=== PATIENT | female | born 1995 | race Caucasian/White ===

== ENCOUNTER 2022-03-14 11:01 | Emergency (ER) | payer MEDICAID, SELFPAY ==
[2022-03-14 11:02] VITALS: BP 104/81; PULSE 57; RESP 14; TEMP 36.8; O2SAT 97; BMI 15.9
--- NOTE | 2022-03-14 11:39 | EDS_ITS ---
HPI History of Present Illness Chief Complaint: Dental Informant: patient Narrative Narrative: 26-year-old female states that yesterday a filling broke on her right upper posterior tooth. Since then she has developed swelling on the right side of her face and increased pain. She had no relief with [id number]. She came from work. She denies any trismus. She states that she does not currently have a dentist [facility] Home Medications albuterol sulfate 90 mcg/actuation aerosol inhaler gm INHALATION 01/24/22 [History Last Taken Unknown] amoxicillin-pot clavulanate 875 mg PO Q12H #20 tablet 03/14/22 [Rx Last Taken Unknown] hydrocodone-acetaminophen 1 tab PO Q6H PRN PRN 3 Days #12 tablet 03/14/22 [Rx Last Taken Unknown] Allergy/AdvReac Type Severity Reaction Status Date / Time cephalexin AdvReac Unknown Unknown Verified 03/14/22 11:02 naproxen AdvReac Unknown Unknown Verified 03/14/22 11:02 Social History (Updated 03/14/22 @ 11:[address] Ang Tran, ) current gender identity: female Smoking Status: Never smoker ROS ROS ED Constitutional Constitutional ED: Denies chills, fever(s) or weight loss Eyes Eyes: Denies change in vision or diplopia ENT ENT ED: Reports other Details: Dental pain ; Denies ear pain, rhinorrhea or sore throat Cardiovascular Cardiovascular: Denies chest pain, orthopnea, palpitations or racing heartbeat Respiratory/Chest Respiratory/Chest: Denies cough, dyspnea or orthopnea Gastrointestinal Gastrointestinal: Denies abdominal pain, diarrhea, nausea or vomiting Genitourinary Genitourinary ED: Denies dysuria, hematuria or urinary frequency Musculoskeletal Musculoskeletal: Denies arthralgias or myalgias Integumentary Denies abscess or rash Neurologic Neurologic: Denies headache(s) or weakness Psychiatric Psychiatric: Denies anxiety, depression, suicidal ideation or suicidal thoughts Endocrine Endocrinology: Denies polydipsia, polyphagia or polyuria Allergic/Immunologic Allergic/Immunologic ED: Denies mouth swelling, tongue swelling or urticaria EXAM Physical Exam Const Vital Signs: 03/14/22 11:02 Temperature 98.3 F Temperature Source Temporal Pulse Rate 57 L Respiratory Rate 14 Blood Pressure 104/81 H Blood Pressure Mean 88 Pulse Ox 97 Oxygen Delivery Method Room Air Positive well nourished and well developed General Appearance ED: well developed HEENT Reports normocephalic, head/scalp atraumatic and moist mucous membranes HEENT Narrative: There is no trismus. Patient is handling her secretions normally. There is mild right maxillary facial swelling without overlying erythema. The right upper posterior molar shows evidence of fracture but no obvious abscess. trauma Eyes PERRL and EOMs intact bilaterally Neck no lymphadenopathy, supple and no JVD Resp normal respiratory effort and clear to auscultation bilaterally Cardio regular rate, regular rhythm and no murmurs GI normal to inspection, nondistended, normoactive bowel sounds and non-tender Palpation: soft Back/Spine no CVA tenderness and normal ROM Extremity normal to inspection General Extremety ED: Negative for edema General Extremity: Negative for edema Neuro oriented x3 and CN's II-XII intact bilaterally Sensorium / Orientation: alert Motor Exam: strength 5/5 throughout Psych mental status grossly normal Mood & Affect: Negative for depressed or tearful Skin no rashes or lesions noted and no wounds MDM MDM MDM Narrative Medical decision making narrative: Patient was started on antibiotics and pain medicine. She is instructed to see dentistry as soon as possible. Discharge Plan Triage Chief Complaint: Dental ED Provider: Ang Tran Dx/Rx/DC Orders Clinical Impression: Pain, dental Instructions: ED Dental Pain Prescriptions: New hydrocodone-acetaminophen [hydrocodone-acetaminophen] 1 TABLET tablet 1 tab PO Q6H PRN PRN (Reason: Pain) 3 Days Qty: 12 RF: 0 amoxicillin-pot clavulanate [amoxicillin-pot clavulanate] 875 MG tablet 875 mg PO Q12H Qty: 20 RF: 0 No Action albuterol sulfate 90 mcg/actuation HFA aerosol inhaler inhalation RF: 0 Disposition Disposition: Home, Self Care
== END 2022-03-14 12:23 | disposition home or self-care (01) ==
LOC: ED 12:14
PROVIDERS: Emergency Provider Emergency Medicine; Visit Provider Emergency Medicine
DX: K08.89 Other specified disorders of teeth and supporting structures (principal); R51.9 Headache, unspecified
CPT/HCPCS: 99282

== ENCOUNTER 2022-12-01 14:38 | Emergency (ER) | payer OTHER, MEDICAID, SELFPAY ==
[2022-12-01 14:39] VITALS: BP 167/120; PULSE 85; RESP 16; TEMP 35.9; O2SAT 100; BMI 19.8
--- NOTE | 2022-12-01 14:43 | VDLE_ITS ---
Reason For Study: Pain RIGHT GSV is normal. CFV is compressible, spontaneous, phasic, competent and demonstrates normal augmentation. FV is compressible, spontaneous, phasic, competent and demonstrates normal augmentation. POP V is compressible, spontaneous, phasic, competent and demonstrates normal augmentation. T/P Trunk is compressible. PTV is compressible. RT PerV is compressible. Procedure This is a venous duplex using B-mode, color flow and spectral Doppler. Exam performed portable in ED. A preliminary report was called and/or faxed to ED RN. VL/Venous Duplex US, Unilateral Interpretation Summary There is no evidence of right lower extremity deep vein thrombosis. Right great saphenous vein appears patent and compressible segmentally. Ordering Physician: Joshua Doe Performed By: Payal Lehman RVT
--- NOTE | 2022-12-01 14:47 | ED.VIS.LOWEX ---
HPI History of Present Illness Chief Complaint: Lower Extremity Injury Narrative Narrative: 27-year-old female states she injured her right Achilles tendon at work last week. She has an open case with the [employer] and [facility] today. She wears a boot because of an Achilles tendon strain. She states she does not have a fracture. She was using 2 carts and stepped backwards, straining her right heel. She states that she took Tylenol, she is currently on steroids. She noticed a bruise on the back of her leg and now is having pain throughout her entire right leg after performing her physical therapy exercises. [facility] Medical History Right foot strain Strain of right Achilles tendon Home Medications methylprednisolone 4 mg tablets in a dose pack (Medrol (Brian)) See Rx Instructions PO PER PKG DIR #21 tabs 11/27/22 [Rx Last Taken Unknown] Allergy/AdvReac Type Severity Reaction Status Date / Time cephalexin AdvReac Unknown Unknown Verified 11/27/22 17:00 naproxen AdvReac Unknown Unknown Verified 11/27/22 17:00 Social History Smoking Status: Never smoker ROS ROS ED ROS Narrative Constitutional: No fever, no chills. HEENT: No sore throat. No neck pain. No loss of vision. No rhinorrhea. Cardiovascular: No chest pain. No palpitations. No pedal edema. Respiratory: No cough, positive shortness of breath. Abdominal: No abdominal pain. No nausea. No vomiting. Genitourinary: No dysuria. No hematuria. Musculoskeletal: No myalgias. Right leg pain, right calf pain. Neurologic: No headaches. No dizziness. No lightheadedness. Skin: No rash. No change in color. Psychiatric: No depression. No anxiety. EXAM Physical Exam Narrative Exam Narrative: Afebrile. Vital signs noted. HEENT: Normocephalic. Atraumatic. PERRL, EOMI. Neck soft and supple. No point tenderness or step off. Cardiovascular: Regular rate and rhythm. No murmurs, rubs, or gallops appreciated. Respiratory: No tachypnea. Lungs clear to auscultation bilaterally. Gastrointestinal: Abdomen soft, nontender, with normoactive bowel sounds. No rebound or guarding. Neurological: Awake. Alert. Nonfocal, nonlateralizing. Skin: No rash. Normal color. No pallor. Patchy ecchymosis right posterior thigh. Musculoskeletal: No pedal edema. Full range of motion extremities. Wearing walking boot on right leg. This was removed. Palpable dorsalis pedis pulse. Flexion and extension mechanism of right knee intact. No overt swelling. Diffuse tenderness to palpation right thigh and right calf. Const Vital Signs: 12/01/22 14:39 Temperature 96.7 F L Temperature Source Temporal Pulse Rate 85 Respiratory Rate 16 Blood Pressure 167/120 H Blood Pressure Mean 135 Pulse Ox 100 Oxygen Delivery Method Room Air MDM MDM MDM Narrative Medical decision making narrative: Although the patient states that she is short of breath, I have low concern for pulmonary embolism currently as her pulse is 85, and her pulse ox is 100% on room air. Ultrasound will be obtained of the right lower extremity to rule out deep venous thrombosis. I reviewed the report of the venous Doppler study, and there is no evidence of right lower extremity DVT, right great saphenous vein appears patent and compressible segmentally. At this point in time, I feel she be discharged safely home to continue follow-up with the [facility] as this is an open [employer] case. She will continue her medications for analgesia including Tylenol. Disposition is discharged home in stable condition. Radiography Diagnostic Testing: Clinical Impression(s) from Imaging Studies Venous Doppler Study 12/01/22 14:43 Interpretation Summary There is no evidence of right lower extremity deep vein thrombosis. Right great saphenous vein appears patent and compressible segmentally. Ordering Physician: Joshua Doe Performed By: Payal Lehman RVT Discharge Plan Triage Chief Complaint: Lower Extremity Injury ED Provider: Joshua Doe Dx/Rx/DC Orders Clinical Impression: Pain in right thigh, Pain of right calf Instructions: ED Pain, Acute, Uncertain Cause Prescriptions: No Action methylprednisolone [Medrol (Brian)] 4 mg tablets,dose pack See Rx Instructions PO PER PKG DIR Qty: 21 0RF Rx Instructions: PO PER PKG DIR Primary Care Provider: Care Physician,No Primary Referrals: Care Physician,No Primary [Primary Care Provider] - [facility] [Non-Staff] - As soon as possible Disposition Disposition: Home, Self Care
--- NOTE | 2022-12-01 14:59 | NURSING ---
ALREADY HAS CLAIM
--- NOTE | 2022-12-01 15:01 | NURSING ---
ALREADY HAS CASE
== END 2022-12-01 15:54 | disposition home or self-care (01) ==
PROVIDERS: Emergency Provider Emergency Medicine; Visit Provider Emergency Medicine
DX: M79.651 Pain in right thigh (principal); M79.661 Pain in right lower leg; R06.02 Shortness of breath
CPT/HCPCS: 93971; 99282